=== PATIENT | male | born 1940 | race Caucasian/White ===

== ENCOUNTER 2018-10-09 16:32 | Inpatient (IN) | payer MEDICARE, MEDICAID ==
--- NOTE | 2018-10-09 16:53 | ED Physician Chart ---
ED Chief Complaint/HPI - Patient Information Date Seen:: 10/09/18 Time Seen:: 16:40 Chief Complaint:: AMS History of Present Illness:: onset x 3 days of fever, cough, congestion, dyspnea, and ALOC/AMS; no report of trauma, H/As, S/T, neck pain, C/P, Abd. Pain, A./N/V/D/C, chills, or urinary s/s Allergies:: Allergies Allergy/AdvReac Type Severity Reaction Status Date / Time chocolate flavor Allergy Verified 10/09/18 16:45 Historian:: Patient, EMS Review:: Nurse's Note Reviewed, Old Chart Reviewed, EMS run form Reviewed ED Review of Systems - Review of Systems General/Constitutional: Fever, No chills, No weight loss, Weakness, No diaphoresis, No edema, No loss of appetite Skin: No skin lesions, No rash, No bruising Head: No headache, No light-headedness Eyes: No loss of vision, No pain, No diplopia ENT: No earache, No nasal drainage, No sore throat, No tinnitus Neck: No neck pain, No swelling, No thyromegaly, No stiffness, No mass noted Cardio Vascular: No chest pain, No palpitations, No PND, No orthopnea, No edema Pulmonary: SOB, Cough, No sputum, No wheezing GI: No nausea, No vomiting, No diarrhea, No pain, No melena, No hematochezia, No constipation, No hematemesis G/U: No dysuria, No frequency, No hematuria, No nacturia Musculoskeletal: No bone or joint pain, No back pain, No muscle pain Endocrine: No polyuria, No polydipsia Psychiatric: No prior psych history, No depression, No anxiety, No suicidal ideation, No homicidal ideation, No auditory hallucination, No visual hallucination Hematopoietic: No bruising, No lymphadenopathy Allergic/Immuno: No urticaria, No angioedema Neurological: No syncope, No focal symptoms, Weakness, No paresthesia, No headache, No seizure, No dizziness, Confusion, No vertigo ED Past Medical History - Past Medical History Obtainable: Yes Past Medical History: HTN, CAD, Asthma/COPD, Dyslipidemia Family History: HTN Social History: Non Smoker, No Alcohol, No Drug Use, Single, Care Facility Surgical History: None Psychiatricy History: None Medication: Reviewed Family Medical History - Family Member Mother History Unknown: Yes ED Physical Exam - Physical Examination General/Constitutional: Awake, Well-developed, well-nourished, Alert, No distress, GCS 15, Non-toxic appearing, Ambulatory Head: Atraumatic Eyes: Lids, conjuctiva normal, PERRL, EOMI Skin: Nl inspection, No rash, No skin lesions, No ecchymosis, Well hydrated, No lymphadenopathy ENMT: External ears, nose nl, TM canals nl, Nasal exam nl, Lips, teeth, gums nl , Oropharynx nl, Tonsils nl Neck: Nontender, Full ROM w/o pain, No JVD, No nuchal rigidity, No bruit, No mass, No stridor Respiratory: Nl effort/Exclusion Other Respiratory comments:: Lungs: + Rales and Rhonchi Cardio Vascular: RRR, No murmur, gallop, rubs, NL S1 S2, Carotid/Femoral/Distal pulses equal bilaterally GI: No tenderness/rebounding/guarding, No organomegaly, No hernia, Normal BS's, Nondistended, No mass/bruits, No McBurney tenderness Other GI comments:: no pulsatile masses : No CVA tenderness Extremities: No tenderness or effusion, Full ROM, normal strength in all extremities, No edema, Normal digits & nails Neuro/Psych: Alert/oriented, DTR's symmetric, Normal sensory exam, Normal motor strength, Judgement/insight normal, Mood normal, Normal gait, No focal deficits Other Neuro/Psych comments:: no focal signs Misc: Normal back, No paraspinal tenderness ED Labs/Radiology/EKG Results - Lab Results Comments:: Reviewed - Radiology Results Comments:: CXR: + RML Inflitrate; Left Pleural Effusion; COPD; CHF - EKG Interpretations EKG Time:: 17:14 Rate & Rhythm: 101; ST Comments:: non-specific st-t changes ED Septic Shock - . Is Septic Shock (SBP<90, OR Lactate>4 mmol\L) present?: No ED Reassessment (Disposition) - Reassessment Reassessment Condition:: Improved - Diagnosis Diagnosis:: Dx: AMS; ALOC; Respiratory Acidosis; Pneumonia; Sepsis; Leukocytosis; Dehydration; Tachycardia; CHF; Elevated BNP; Dyspnea; Cough; COPD; Hyperlipidemia - Aftercare/Follow up Instructions Aftercare/Follow-Up Instructions:: Counseled pt regarding lab results/diagnosis & need follow up, Counseled pt & family regarding lab results/diagnosis & need follow up - Patient Disposition Discharge/Transfer:: Acute Care w/in this hosp Accepting Physician:: Dr. Benavidez Time Called:: 1829 Time Responded:: 18:30 Admitted to:: ICU Spoke to:: Dr. Benavidez Admitting Medical Physician:: Dr. Benavdiez Condition at Disposition:: Stable, Improved
[2018-10-09 17:06] LABS: % EOSINOPHILS 7.5 % (0.0-5.0); % LYMPHOCYTES 11.9 % (20.0-50.0); % MONOCYTES 3.4 % (2.0-10.0); % NEUTROPHILS 77.2 % (40.0-80.0); EOSINOPHILE ABSOLUTE 0.9 Th/cmm (0.1-0.4); HEMATOCRIT 39.8 % (41.0-60); HEMOGLOBIN 12.5 gm/dL (12-16); LYMPHOCYTE ABSOLUTE 1.5 Th/cmm (1.5-3.0); MEAN CELL VOLUME 90.8 fl (80-99); MEAN CORPUSCULAR HEMOGLOBIN 28.5 pg (27.0-31.0); MEAN CORPUSCULAR HGB CONC 31.4 pg (28.0-36.0); MEAN PLATELET VOLUME 7.9 fl; MONOCYTE ABSOLUTE 0.4 Th/cmm (0.3-1.0); NEUTROPHILE ABSOLUTE 9.4 Th/cmm (1.8-8.0); PLATELET COUNT 329 Th/cmm (150-400); RED BLOOD COUNT 4.39 Mil/cmm (3.80-5.80); RED CELL DISTRIBUTION WIDTH 18.4 % (11.5-20.0); WHITE BLOOD COUNT 12.2 Th/cmm (4.8-10.8)
[2018-10-09 17:06] LABS: ALLEN TEST YES; pH 7.26 (7.35-7.45)
[2018-10-09 17:14] LABS: INR 0.92 (0.5-1.4); PROTHROMBIN TIME (TEST) 9.6 SECONDS (9.5-11.5)
[2018-10-09] MEDS ORDERED: Levofloxacin 500mg/100mL 500 MG/100 ML BAG IV ONE ×2 (17:15→18:10)
[2018-10-09 17:22] LABS: ALBUMIN 3.6 gm/dL (4.2-5.5); ALKALINE PHOSPHATASE 50 U/L (34-104); ANION GAP 10.1 (7.0-16.0); BILIRUBIN,TOTAL 0.2 mg/dL (0.3-1.0); BUN - UREA NITROGEN 14 mg/dL (7-25); CALCIUM SERUM 9.7 mg/dL (8.6-10.3); CARBON DIOXIDE 38.1 mEq/L (21.0-31.0); CHLORIDE 96 mEq/L (98-107); CHOLESTEROL 211 mg/dL (<200); CREATININE - SERUM 1.1 mg/dL (0.7-1.3); CREATININE KINASE 62 U/L (30-223); GLUCOSE 131 mg/dL (70-105); HDL -HIGH DENSITY LIPOPROTEIN 56 mg/dL (23-92); POTASSIUM SERUM 4.2 mEq/L (3.5-5.1); SGOT 13 U/L (13-39); SGPT/ALT 19 U/L (7-52); SODIUM SERUM 140 mEq/L (136-145); TOTAL PROTEIN,SERUM 7.1 gm/dL (6.0-8.3); TRIGLYCERIDES 111 mg/dL (<150)
[2018-10-09 17:58] LABS: DDIMER QUANT 1100 ng/mL (100-400)
[2018-10-09] MEDS ORDERED: Albuterol/Ipratropium Neb 3 ML AERS HHN PRN (19:45)
[2018-10-09] MEDS ORDERED: Fleet Enema 135 mL RC PRN (19:45)
[2018-10-09] MEDS ORDERED: Magnesium Hydroxide (MOM) 30 mL UDC PO PRN (19:45)
[2018-10-09] MEDS ORDERED: Hydrocodone/APAP 5mg/325mg Tab PO PRN (19:45)
[2018-10-09 19:52] LABS: INR 0.92 (0.5-1.4); PROTHROMBIN TIME (TEST) 9.6 SECONDS (9.5-11.5)
[2018-10-09 20:03] LABS: pH 7.37 (7.35-7.45)
[2018-10-09 20:04] LABS: ALLEN TEST Positive
[2018-10-09 21:00] VITALS: BP 117/67
[2018-10-09] MEDS: methylPREDNISolone SS 40 mg Vial IVP SCH (21:12)
[2018-10-09] MEDS: D5-0.45NS 1,000 ML IV SCH (21:13)
[2018-10-10] MEDS: methylPREDNISolone SS 40 mg Vial IVP SCH ×3 (05:35→20:29)
[2018-10-10] MEDS: Albuterol Nebulizer 2.5mg/3mL HHN SCH ×4 (07:12→19:39)
[2018-10-10] MEDS: Ipratropium Neb 0.5 mg/2.5 mL UD HHN SCH ×4 (07:12→19:39)
[2018-10-10] MEDS: D5-0.45NS 1,000 ML IV SCH (08:56)
[2018-10-10] MEDS: POLYETHYLENE GLYCOL 3350 17 GM PACK PO SCH (09:05)
[2018-10-10] MEDS: Multivitamin w/ Minerals Tab PO SCH (09:05)
[2018-10-10] MEDS: Lactulose 10 Gm/15 mL 30mL UDC PO SCH (09:06)
[2018-10-10] MEDS: Aspirin 81mg Chewable Tab PO SCH (09:06)
[2018-10-10] MEDS: Diltiazem CD 120 mg 24H PO SCH (09:06)
--- NOTE | 2018-10-10 09:07 | Diagnostic Imaging Report ---
Portable chest x-ray HISTORY: Pain Patient is rotated. Heart size difficult to assess with portable technique in a poor inspiration. Densities noted in the left lower hemithorax with partial obscuration of the left hemidiaphragm. Question small left pleural effusion. Underlying infiltrate cannot be excluded. Accentuation of interstitial markings in the right perihilar area. Atherosclerotic calcination seen through the aorta. IMPRESSION: 1. Density left lower hemithorax. Findings may be associated with a small pleural effusion. Infiltrate cannot be excluded within the left lower lobe. 2. Atherosclerotic vascular changes
--- NOTE | 2018-10-10 10:04 | History & Physical ---
ADMIT DATE: 10/09/2018 CHIEF COMPLAINT: Increasing shortness of breath. HISTORY OF PRESENT ILLNESS: This is a 78-year-old male with history of CAD, hypertension, BPH, instability, and depression, admitted from a [facility] secondary to increasing shortness of breath with fever, cough, and congestion. The patient was evaluated in the ER and noted to have COPD exacerbation and pneumonia and admitted for further management. PAST MEDICAL HISTORY: As mentioned in the history of present illness. PAST SURGICAL HISTORY: Status post right ankle surgery. ALLERGIES: No known drug allergies. MEDICATIONS: The patient is on aspirin, vitamin C, albuterol, Atrovent, Colace, Remeron, MiraLax, prednisone, and Flomax. FAMILY HISTORY: Noncontributory. SOCIAL HISTORY: The patient is an avid smoker and drinker in the past. No intravenous drug use. The patient did some labor work. Single, no children. He also was a [employer] consultant. The patient lives in a [facility], requiring 24-hour total care. REVIEW OF SYSTEMS: GENERAL: He complains of not feeling well. HEENT: No blurred vision. NECK: No neck pain. LUNGS: No diagnosis of asthma. The patient with COPD. HEART: History of hypertension and coronary artery disease. ABDOMEN: No nausea, vomiting or pain. GENITOURINARY: The patient denies increased urinary frequency or dysuria. NEUROLOGIC: No headache, seizure or syncope. PSYCHIATRIC: Stable. PHYSICAL EXAMINATION: VITAL SIGNS: Blood pressure 125/66, respirations 20, pulse 79, temperature 97.4. GENERAL: Elderly male, appears stated age. NECK: Supple. No mass. LUNGS: Equal breath sounds with few rhonchi. HEART: Regular rate and rhythm with a systolic ejection murmur. ABDOMEN: Soft, globular. EXTREMITIES: With no atrophy or deformity. NEUROLOGIC: Limited. LABORATORY DATA: As detailed in the laboratory sheet. Pertinent lab findings include white count, which is elevated at 12.3, hemoglobin 12.5, platelets 329. D-dimer was 1100. PCO2 of 77, pO2 of 116, and this was on 50% FiO2. Chloride 96, BUN 14, creatinine 1.1, glucose 131. ASSESSMENT AND PLAN: Acute chronic obstructive pulmonary disease exacerbation, pneumonia, coronary artery disease, hypertension, benign prostatic hyperplasia. The patient ____ CO2 retention. We will continue the patient on oxygen, bronchodilator treatment, IV antibiotics, and IV steroids. We will review the patient's chest x-ray and check the patient's KUB. We will also perform a venous ultrasound. Continue with current care with followup consult and recommendation. [facility]# [id number]
--- NOTE | 2018-10-10 10:28 | Diagnostic Imaging Report ---
KUB abdominal film (portable) HISTORY: Pain There is a nonspecific gas pattern of nondilated large and small bowel. No free intraperitoneal air. Severe arthritic changes noted about the hips particularly on the right side. Vascular calcification is noted. IMPRESSION: 1. Nonspecific bowel gas pattern with no acute radiographic abnormalities. 2. Atherosclerotic vascular changes
[2018-10-11] MEDS: D5-0.45NS 1,000 ML IV SCH ×2 (00:45→20:11)
[2018-10-11 05:21] LABS: HEMATOCRIT 34.1 % (41.0-60); LYMPHOCYTE ABSOLUTE 0.7 Th/cmm (1.5-3.0); MEAN CELL VOLUME 90.4 fl (80-99); MEAN CORPUSCULAR HEMOGLOBIN 29.2 pg (27.0-31.0); MEAN CORPUSCULAR HGB CONC 32.3 pg (28.0-36.0); MEAN PLATELET VOLUME 7.9 fl; MONOCYTE ABSOLUTE 0.2 Th/cmm (0.3-1.0); NEUTROPHILE ABSOLUTE 15.2 Th/cmm (1.8-8.0); PLATELET COUNT 314 Th/cmm (150-400); RED BLOOD COUNT 3.77 Mil/cmm (3.80-5.80); RED CELL DISTRIBUTION WIDTH 18.1 % (11.5-20.0)
[2018-10-11 05:24] LABS: ANION GAP 10.7 (7.0-16.0); BUN - UREA NITROGEN 17 mg/dL (7-25); CALCIUM SERUM 9.2 mg/dL (8.6-10.3); CARBON DIOXIDE 35.9 mEq/L (21.0-31.0); CHLORIDE 99 mEq/L (98-107); CREATININE - SERUM 0.6 mg/dL (0.7-1.3); GLUCOSE 175 mg/dL (70-105); POTASSIUM SERUM 4.6 mEq/L (3.5-5.1); SODIUM SERUM 141 mEq/L (136-145)
[2018-10-11 05:32] LABS: WHITE BLOOD COUNT 16.1 Th/cmm (4.8-10.8)
[2018-10-11 05:52] LABS: BAND NEUTROPHILE 0 % (0-10); LYMPHOCYTE 5 % (20-50); NEUTROPHILS 90 % (40-80)
[2018-10-11 05:53] LABS: BASOPHIL 0 % (0-3); EOSINOPHIL 1 % (0-5); MONOCYTE 4 % (2-10)
[2018-10-11] MEDS: methylPREDNISolone SS 40 mg Vial IVP SCH ×3 (06:05→20:11)
[2018-10-11] MEDS: Albuterol Nebulizer 2.5mg/3mL HHN SCH ×4 (06:14→18:49)
[2018-10-11] MEDS: Ipratropium Neb 0.5 mg/2.5 mL UD HHN SCH ×4 (06:14→18:49)
[2018-10-11 08:09] LABS: pH 7.45 (7.35-7.45)
[2018-10-11 08:10] LABS: ALLEN TEST Positive
[2018-10-11] MEDS: Aspirin 81mg Chewable Tab PO SCH (08:58)
[2018-10-11] MEDS: Lactulose 10 Gm/15 mL 30mL UDC PO SCH (08:58)
[2018-10-11] MEDS: Diltiazem CD 120 mg 24H PO SCH (08:58)
[2018-10-11] MEDS: Multivitamin w/ Minerals Tab PO SCH (08:58)
[2018-10-11] MEDS: POLYETHYLENE GLYCOL 3350 17 GM PACK PO SCH (08:58)
--- NOTE | 2018-10-11 09:02 | Consultation ---
DATE OF CONSULTATION: 10/10/2018 PATIENT OF: Dr. Benavidez Thank you very much Dr. Benavidez for this consultation. HISTORY OF PRESENT ILLNESS: This is a 78-year-old male who was admitted with respiratory distress, shortness of breath, was placed on the BiPAP. The patient has an underlying history of COPD, was found to have pneumonia as well, has been off the BiPAP for a few hours now, doing well and was eating comfortable, no distress. PAST MEDICAL HISTORY: As above. SOCIAL HISTORY: Smoking about 40 years, quit 20 years ago. REVIEW OF SYSTEMS: GENERAL: Some weakness and fatigue. CARDIOVASCULAR: No chest pain, no palpitation. RESPIRATORY: Shortness of breath and cough. GASTROINTESTINAL: No nausea or vomiting. PHYSICAL EXAMINATION: GENERAL: Awake, alert, not in acute distress. VITAL SIGNS: Temperature 97.5, pulse 80, respiration 18, blood pressure 110/60, saturation 95%. HEENT: Atraumatic, normocephalic. Pupils react to light and accommodation. Ears, nose and throat normal. NECK: Supple. No JVD. CHEST: There are scattered rhonchi, minimal wheezing, decreased breath sounds. HEART: Regular rate and rhythm. ABDOMEN: Soft. EXTREMITIES: No edema. LABORATORY AND DIAGNOSTIC DATA: WBC is 12.2, hemoglobin 12.5, 39.8, platelets is 329. ABGs: PH 7.37, pCO2 of 77, pO2 116, bicarb is 37. Sodium is 140, potassium 4.2, BUN 14, creatinine 1.1. Chest x-ray: Infiltrate in left lower lobe and atelectasis in the right middle and lower lobe. IMPRESSION: A 78-year-old male with: 1. Chronic obstructive pulmonary disease exacerbation. 2. Acute respiratory failure. 3. Pneumonia. PLAN: 1. Continue IV antibiotics. 2. Nebulizer treatment. 3. BiPAP p.r.n. Follow up ABGs. 4. Solu-Medrol. I will follow the patient with you. Thank you very much for this consultation. [facility]# [id number]
--- NOTE | 2018-10-11 09:49 | Diagnostic Imaging Report ---
Bilateral lower extremity Doppler venous ultrasound exam HISTORY: Pain/swelling Sonographic sector images were obtained through the deep venous systems of both legs. Associated Doppler data was obtained. The exam demonstrates patency of the common femoral, superficial femoral, popliteal, and posterior tibial veins bilaterally. Specifically, no thrombus is seen. There are normal compressibility and augmentation responses. IMPRESSION: Negative exam for deep vein thrombophlebitis.
--- NOTE | 2018-10-11 09:56 | Diagnostic Imaging Report ---
Portable chest x-ray HISTORY: Shortness of breath Compared with the prior exam of 10/09/2018, there is improved visualization of the left lower lobe. Accentuation of the lower interstitial lung markings. No change in accentuation of interstitial markings within the right infrahilar area. The appearance suggests a chronic etiology. The heart appears enlarged. Atherosclerotic calcification noted. IMPRESSION: 1. Improved visualization of the left lower lobe. Parenchymal changes may be associated with a chronic etiology. Clinical correlation needed. 2. Cardiomegaly with atherosclerotic vascular changes
--- NOTE | 2018-10-11 14:27 | Internal Medicine Prog Note ---
Internal Medicine Subjective - Subjective Patient seen and examined:: with staff, chart reviewed Patient is:: awake, verbal, interactive Per staff patient has:: no adverse event, no episodes of fall, eating well, tolerating meds Internal Medicine Objective - Results Result Diagrams: 10/11/18 04:19 10/11/18 04:19 Recent Labs: Laboratory Last Values WBC 16.1 Th/cmm (4.8-10.8) H 10/11/18 04:19 RBC 3.77 Mil/cmm (3.80-5.80) L 10/11/18 04:19 Hgb 11.0 gm/dL (12-16) L 10/11/18 04:19 Hct 34.1 % (41.0-60) L 10/11/18 04:19 MCV 90.4 fl (80-99) 10/11/18 04:19 MCH 29.2 pg (27.0-31.0) 10/11/18 04:19 MCHC Differential 32.3 pg (28.0-36.0) 10/11/18 04:19 RDW 18.1 % (11.5-20.0) 10/11/18 04:19 Plt Count 314 Th/cmm (150-400) 10/11/18 04:19 MPV 7.9 fl 10/11/18 04:19 Add Manual Diff YES 10/11/18 04:19 Neutrophils % 77.2 % (40.0-80.0) 10/09/18 16:50 Band Neutrophils % 0 % (0-10) 10/11/18 04:19 Lymphocytes % 11.9 % (20.0-50.0) L 10/09/18 16:50 Monocytes % 3.4 % (2.0-10.0) 10/09/18 16:50 Eosinophils % 7.5 % (0.0-5.0) H 10/09/18 16:50 Basophils % 0.0 % (0.0-2.0) 10/09/18 16:50 Neutrophils (Manual) 90 % (40-80) H 10/11/18 04:19 Lymphocytes 5 % (20-50) L 10/11/18 04:19 Monocytes 4 % (2-10) 10/11/18 04:19 Eosinophils 1 % (0-5) 10/11/18 04:19 Basophils 0 % (0-3) 10/11/18 04:19 PT 9.6 SECONDS (9.5-11.5) 10/09/18 16:50 INR 0.92 (0.5-1.4) 10/09/18 16:50 PTT (Actin FS) 19.2 SECONDS (26.0-38.0) L 10/09/18 16:50 D-Dimer 1100 ng/mL (100-400) H 10/09/18 16:50 Specimen Source Arterial 10/11/18 07:45 Sample Site RB 10/11/18 07:45 pH 7.45 (7.35-7.45) 10/11/18 07:45 pCO2 56.0 mmHg (35.0-45.0) H* 10/11/18 07:45 pO2 53.0 mmHg (80.0-100.0) L 10/11/18 07:45 HCO3 34.6 mEq/L (20.0-26.0) H 10/11/18 07:45 Base Excess 12.7 mEq/L (-3.0-3.0) H 10/11/18 07:45 O2 Saturation 89.0 % (92.0-100.0) L 10/11/18 07:45 Branden Test Positive 10/11/18 07:45 Vent Rate N/A 10/11/18 07:45 Inspired O2 32 10/11/18 07:45 Tidal Volume N/A 10/11/18 07:45 PEEP N/A 10/11/18 07:45 Pressure (ins/psv/peep) N/A 10/11/18 07:45 Critical Value DM 10/11/18 07:45 Sodium 141 mEq/L (136-145) 10/11/18 04:19 Potassium 4.6 mEq/L (3.5-5.1) 10/11/18 04:19 Chloride 99 mEq/L (98-107) 10/11/18 04:19 Carbon Dioxide 35.9 mEq/L (21.0-31.0) H 10/11/18 04:19 Anion Gap 10.7 (7.0-16.0) 10/11/18 04:19 BUN 17 mg/dL (7-25) 10/11/18 04:19 Creatinine 0.6 mg/dL (0.7-1.3) L 10/11/18 04:19 Est GFR ( Amer) TNP 10/11/18 04:19 Est GFR (Non-Af Amer) TNP 10/11/18 04:19 BUN/Creatinine Ratio 28.3 10/11/18 04:19 Glucose 175 mg/dL (70-105) H 10/11/18 04:19 Whole Bld Lactic Acid 0.68 mmol/L (0.60-1.99) 10/09/18 16:43 Calcium 9.2 mg/dL (8.6-10.3) 10/11/18 04:19 Total Bilirubin 0.2 mg/dL (0.3-1.0) L 10/09/18 16:50 AST 13 U/L (13-39) 10/09/18 16:50 ALT 19 U/L (7-52) 10/09/18 16:50 Alkaline Phosphatase 50 U/L (34-104) 10/09/18 16:50 Ammonia 29 umol/L (16-53) 10/11/18 04:19 Creatine Kinase 62 U/L (30-223) 10/09/18 16:50 Troponin I 0.04 ng/mL (0.01-0.05) 10/09/18 16:50 B-Natriuretic Peptide 226.0 pg/mL (5.0-100.0) H 10/09/18 16:50 Total Protein 7.1 gm/dL (6.0-8.3) 10/09/18 16:50 Albumin 3.6 gm/dL (4.2-5.5) L 10/09/18 16:50 Globulin 3.5 gm/dL 10/09/18 16:50 Albumin/Globulin Ratio 1.0 (1.0-1.8) 10/09/18 16:50 Triglycerides 111 mg/dL (<150) 10/09/18 16:50 Cholesterol 211 mg/dL (<200) H 10/09/18 16:50 LDL Cholesterol Direct 140 mg/dL (75-193) 10/09/18 16:50 HDL Cholesterol 56 mg/dL (23-92) 10/09/18 16:50 TSH 0.65 uIU/ml (0.34-5.60) 10/11/18 04:19 - Physical Exam Vitals and I&O: Vital Signs Temp 97.4 F 10/11/18 12:08 Pulse 77 10/11/18 12:08 Resp 21 10/11/18 13:00 BP 120/68 10/11/18 12:08 Pulse Ox 94 10/11/18 12:08 Intake & Output 10/10/18 10/11/18 10/11/18 18:59 06:59 18:59 Intake Total 536.737 0197 50 Balance 656.214 0351 50 Weight (lbs) 74.843 kg 82.418 kg Intake: Intake, IV Amount 892.937 6961 50 Cefepime 1 gm In Dextrose 50 50 50 5% 50 ml @ 100 mls/hr IV Q12H [facility] Rx#:[id number] D5-0.45NS 1,000 ml @ 80 596.357 2935 mls/hr IV .[id number] [facility] Rx #:[id number] Oral 50 Other: # Voids 2 3 # Bowel Movements 0 0 Weight Source Bedscale Bedscale Active Medications: Current Medications Acetaminophen (Tylenol) 650 mg PO Q4H PRN PRN Reason: Pain (Mild) Acetaminophen/Hydrocodone Bitart ([place] 5mg/325mg) 1 tab PO Q6H PRN PRN Reason: Pain (Moderate) Stop: 12/08/18 19:44 Albuterol Sulfate (Albuterol 2.5mg/3ml Neb Ud) 2.5 mg HHN QIDRT [facility] Stop: 12/09/18 06:59 Last Admin: 10/11/18 11:12 Dose: 2.5 mg Albuterol/Ipratropium (Duoneb Neb) 3 ml HHN Q4HRT PRN PRN Reason: COPD Stop: 12/08/18 19:44 Ascorbic Acid (Vitamin C) 500 mg PO DAILY [facility] Stop: 12/09/18 08:59 Last Admin: 10/11/18 08:58 Dose: 500 mg Aspirin (Aspirin Chewable) 81 mg PO DAILY [facility] Stop: 12/09/18 08:59 Last Admin: 10/11/18 08:58 Dose: 81 mg Bisacodyl (Dulcolax 10 Mg Supp) 10 mg RC DAILY PRN PRN Reason: IF NO BM AFTER MOM Stop: 12/08/18 19:44 Diltiazem HCl (Cardizem Cd) 120 mg PO DAILY [facility] Stop: 12/09/18 08:59 Last Admin: 10/11/18 08:58 Dose: Not Given Docusate Sodium (Colace) 100 mg PO BID [facility] Stop: 12/09/18 08:59 Last Admin: 10/11/18 08:58 Dose: 100 mg Cefepime HCl 1 gm/ Dextrose 50 mls @ 100 mls/hr IV Q12H [facility] Stop: 12/08/18 19:59 Last Infusion: 10/11/18 09:10 Dose: Infused Dextrose/Sodium Chloride (D5-0.45ns) 1,000 mls @ 80 mls/hr IV .[id number] [facility] Stop: 12/08/18 19:59 Last Admin: 10/11/18 00:45 Dose: 80 mls/hr Ipratropium [place] (Atrovent Neb 0.5mg/2.5ml) 0.5 mg HHN QIDRT [facility] Stop: 12/09/18 06:59 Last Admin: 10/11/18 11:12 Dose: 0.5 mg Lactulose (Cephulac) 20 gm PO DAILY [facility] Stop: 12/09/18 08:59 Last Admin: 10/11/18 08:58 Dose: 20 gm Magnesium Hydroxide (Milk Of Magnesia) 30 ml PO Q24H PRN PRN Reason: Constipation Stop: 12/08/18 19:44 Methylprednisolone Sodium Succinate (Solu-Medrol) 60 mg IVP Q8HR [facility] Stop: 12/10/18 20:59 Mirtazapine (Remeron) 15 mg PO HS [facility] Stop: 12/09/18 20:59 Last Admin: 10/10/18 20:29 Dose: 15 mg Mupirocin (Bactroban Oint) 1 appl NS BID [facility] Stop: 10/16/18 09:01 Nitroglycerin (Nitrostat) 0.4 mg SL Q5MIN PRN PRN Reason: CHEST PAIN X3 Stop: 12/08/18 19:44 Ondansetron HCl (Zofran) 4 mg IV Q8H PRN PRN Reason: Nausea / Vomiting Stop: 12/08/18 19:48 Polyethylene Glycol (Miralax) 17 gm PO DAILY [facility] Stop: 12/09/18 08:59 Last Admin: 10/11/18 08:58 Dose: 17 gm Sodium Phosphate (Fleet Enema) 133 ml RC PRN PRN PRN Reason: IF NO BM AFTER DULCOLAX Stop: 12/08/18 19:44 Tamsulosin HCl (Flomax) 0.4 mg PO DAILY [facility] Stop: 12/09/18 08:59 Last Admin: 10/11/18 08:58 Dose: 0.4 mg General: alert Neck: Supple, No JVD, No thyromegaly Lungs: congested, rales, ronchi Cardiovascular: RRR, Normal S1, Normal S2, with murmur Abdomen: soft, non-tender, positive bowel sound Extremities: excoriation Neurological: no change Internal Medicine Assmt/Plan - Assessment Assessment: ASSESSMENT AND PLAN: Acute chronic obstructive pulmonary disease exacerbation, pneumonia, coronary artery disease, hypertension, benign prostatic hyperplasia. The patient ___high_ CO2 retention. - Plan Plan: PLAN: We will continue the patient on oxygen, bronchodilator treatment, IV antibiotics, and IV steroids. We will review the patient's chest x-ray and check the patient's KUB. We will also perform a venous ultrasound. Continue with current care with followup consult and recommendation.
[2018-10-12] MEDS: methylPREDNISolone SS 40 mg Vial IVP SCH ×2 (05:35→20:44)
[2018-10-12] MEDS: D5-0.45NS 1,000 ML IV SCH (05:39)
[2018-10-12 05:59] LABS: EOSINOPHILE ABSOLUTE 0.1 Th/cmm (0.1-0.4); HEMATOCRIT 34.3 % (41.0-60); HEMOGLOBIN 11.1 gm/dL (12-16); LYMPHOCYTE ABSOLUTE 0.5 Th/cmm (1.5-3.0); MEAN CORPUSCULAR HEMOGLOBIN 29.2 pg (27.0-31.0); MEAN CORPUSCULAR HGB CONC 32.4 pg (28.0-36.0); MEAN PLATELET VOLUME 7.4 fl; MONOCYTE ABSOLUTE 0.3 Th/cmm (0.3-1.0); NEUTROPHILE ABSOLUTE 17.3 Th/cmm (1.8-8.0); PLATELET COUNT 327 Th/cmm (150-400); RED CELL DISTRIBUTION WIDTH 18.4 % (11.5-20.0)
[2018-10-12 06:04] LABS: WHITE BLOOD COUNT 18.2 Th/cmm (4.8-10.8)
[2018-10-12 06:12] LABS: % EOSINOPHILS 0.3 % (0.0-5.0); % LYMPHOCYTES 2.5 % (20.0-50.0); % MONOCYTES 1.8 % (2.0-10.0); % NEUTROPHILS 95.4 % (40.0-80.0)
[2018-10-12] MEDS: Albuterol Nebulizer 2.5mg/3mL HHN SCH ×3 (06:19→18:30)
[2018-10-12] MEDS: Ipratropium Neb 0.5 mg/2.5 mL UD HHN SCH ×4 (06:19→18:30)
[2018-10-12 06:32] LABS: ANION GAP 10.2 (7.0-16.0); BUN - UREA NITROGEN 22 mg/dL (7-25); CALCIUM SERUM 8.7 mg/dL (8.6-10.3); CARBON DIOXIDE 32.4 mEq/L (21.0-31.0); CHLORIDE 103 mEq/L (98-107); CREATININE - SERUM 0.6 mg/dL (0.7-1.3); GLUCOSE 156 mg/dL (70-105); POTASSIUM SERUM 4.6 mEq/L (3.5-5.1); SODIUM SERUM 141 mEq/L (136-145)
[2018-10-12] MEDS: Aspirin 81mg Chewable Tab PO SCH (08:37)
[2018-10-12] MEDS: Diltiazem CD 120 mg 24H PO SCH (08:37)
[2018-10-12] MEDS: Multivitamin w/ Minerals Tab PO SCH (08:37)
[2018-10-12] MEDS: Lactulose 10 Gm/15 mL 30mL UDC PO SCH (08:37)
[2018-10-12] MEDS: POLYETHYLENE GLYCOL 3350 17 GM PACK PO SCH (08:37)
--- NOTE | 2018-10-12 14:53 | Internal Medicine Prog Note ---
Internal Medicine Subjective - Subjective Patient seen and examined:: with staff, chart reviewed Patient is:: awake, verbal, interactive Per staff patient has:: no adverse event, no episodes of fall, eating well, tolerating meds Internal Medicine Objective - Results Result Diagrams: 10/12/18 05:40 10/12/18 05:40 Recent Labs: Laboratory Last Values WBC 18.2 Th/cmm (4.8-10.8) H 10/12/18 05:40 RBC 3.80 Mil/cmm (3.80-5.80) 10/12/18 05:40 Hgb 11.1 gm/dL (12-16) L 10/12/18 05:40 Hct 34.3 % (41.0-60) L 10/12/18 05:40 MCV 90.0 fl (80-99) 10/12/18 05:40 MCH 29.2 pg (27.0-31.0) 10/12/18 05:40 MCHC Differential 32.4 pg (28.0-36.0) 10/12/18 05:40 RDW 18.4 % (11.5-20.0) 10/12/18 05:40 Plt Count 327 Th/cmm (150-400) 10/12/18 05:40 MPV 7.4 fl 10/12/18 05:40 Add Manual Diff YES 10/12/18 05:40 Neutrophils % 95.4 % (40.0-80.0) H 10/12/18 05:40 Band Neutrophils % 0 % (0-10) 10/11/18 04:19 Lymphocytes % 2.5 % (20.0-50.0) L 10/12/18 05:40 Monocytes % 1.8 % (2.0-10.0) L 10/12/18 05:40 Eosinophils % 0.3 % (0.0-5.0) 10/12/18 05:40 Basophils % 0.0 % (0.0-2.0) 10/12/18 05:40 Neutrophils (Manual) Not Reportable 10/12/18 05:40 Lymphocytes 5 % (20-50) L 10/11/18 04:19 Monocytes 4 % (2-10) 10/11/18 04:19 Eosinophils 1 % (0-5) 10/11/18 04:19 Basophils 0 % (0-3) 10/11/18 04:19 PT 9.6 SECONDS (9.5-11.5) 10/09/18 16:50 INR 0.92 (0.5-1.4) 10/09/18 16:50 PTT (Actin FS) 19.2 SECONDS (26.0-38.0) L 10/09/18 16:50 D-Dimer 1100 ng/mL (100-400) H 10/09/18 16:50 Specimen Source Arterial 10/11/18 07:45 Sample Site RB 10/11/18 07:45 pH 7.45 (7.35-7.45) 10/11/18 07:45 pCO2 56.0 mmHg (35.0-45.0) H* 10/11/18 07:45 pO2 53.0 mmHg (80.0-100.0) L 10/11/18 07:45 HCO3 34.6 mEq/L (20.0-26.0) H 10/11/18 07:45 Base Excess 12.7 mEq/L (-3.0-3.0) H 10/11/18 07:45 O2 Saturation 89.0 % (92.0-100.0) L 10/11/18 07:45 Branden Test Positive 10/11/18 07:45 Vent Rate N/A 10/11/18 07:45 Inspired O2 32 10/11/18 07:45 Tidal Volume N/A 10/11/18 07:45 PEEP N/A 10/11/18 07:45 Pressure (ins/psv/peep) N/A 10/11/18 07:45 Critical Value DM 10/11/18 07:45 Sodium 141 mEq/L (136-145) 10/12/18 05:40 Potassium 4.6 mEq/L (3.5-5.1) 10/12/18 05:40 Chloride 103 mEq/L (98-107) 10/12/18 05:40 Carbon Dioxide 32.4 mEq/L (21.0-31.0) H 10/12/18 05:40 Anion Gap 10.2 (7.0-16.0) 10/12/18 05:40 BUN 22 mg/dL (7-25) 10/12/18 05:40 Creatinine 0.6 mg/dL (0.7-1.3) L 10/12/18 05:40 Est GFR ( Amer) TNP 10/12/18 05:40 Est GFR (Non-Af Amer) TNP 10/12/18 05:40 BUN/Creatinine Ratio 36.7 10/12/18 05:40 Glucose 156 mg/dL (70-105) H 10/12/18 05:40 Whole Bld Lactic Acid 0.68 mmol/L (0.60-1.99) 10/09/18 16:43 Calcium 8.7 mg/dL (8.6-10.3) 10/12/18 05:40 Total Bilirubin 0.2 mg/dL (0.3-1.0) L 10/09/18 16:50 AST 13 U/L (13-39) 10/09/18 16:50 ALT 19 U/L (7-52) 10/09/18 16:50 Alkaline Phosphatase 50 U/L (34-104) 10/09/18 16:50 Ammonia 29 umol/L (16-53) 10/11/18 04:19 Creatine Kinase 62 U/L (30-223) 10/09/18 16:50 Troponin I 0.04 ng/mL (0.01-0.05) 10/09/18 16:50 B-Natriuretic Peptide 226.0 pg/mL (5.0-100.0) H 10/09/18 16:50 Total Protein 7.1 gm/dL (6.0-8.3) 10/09/18 16:50 Albumin 3.6 gm/dL (4.2-5.5) L 10/09/18 16:50 Globulin 3.5 gm/dL 10/09/18 16:50 Albumin/Globulin Ratio 1.0 (1.0-1.8) 10/09/18 16:50 Triglycerides 111 mg/dL (<150) 10/09/18 16:50 Cholesterol 211 mg/dL (<200) H 10/09/18 16:50 LDL Cholesterol Direct 140 mg/dL (75-193) 10/09/18 16:50 HDL Cholesterol 56 mg/dL (23-92) 10/09/18 16:50 TSH 0.65 uIU/ml (0.34-5.60) 10/11/18 04:19 - Physical Exam Vitals and I&O: Vital Signs Temp 96.8 F 10/12/18 11:29 Pulse 80 10/12/18 11:29 Resp 17 10/12/18 11:29 BP 118/67 10/12/18 11:29 Pulse Ox 94 10/12/18 11:29 Intake & Output 10/11/18 10/12/18 10/12/18 18:59 06:59 18:59 Intake Total 2200 807.333 Balance 2200 807.333 Weight (lbs) 82.355 kg Intake: Intake, IV Amount 1050 807.333 Cefepime 1 gm In Dextrose 50 50 5% 50 ml @ 100 mls/hr IV Q12H [facility] Rx#:[id number] D5-0.45NS 1,000 ml @ 80 1000 757.333 mls/hr IV .[id number] [facility] Rx #:[id number] Oral 1150 Other: # Voids 2 # Bowel Movements 0 Weight Source Bedscale Active Medications: Current Medications Acetaminophen (Tylenol) 650 mg PO Q4H PRN PRN Reason: Pain (Mild) Acetaminophen/Hydrocodone Bitart ([place] 5mg/325mg) 1 tab PO Q6H PRN PRN Reason: Pain (Moderate) Stop: 12/08/18 19:44 Albuterol Sulfate (Albuterol 2.5mg/3ml Neb Ud) 2.5 mg HHN QIDRT [facility] Stop: 12/09/18 06:59 Last Admin: 10/12/18 06:19 Dose: 2.5 mg Albuterol/Ipratropium (Duoneb Neb) 3 ml HHN Q4HRT PRN PRN Reason: COPD Stop: 12/08/18 19:44 Last Admin: 10/12/18 10:30 Dose: 3 ml Ascorbic Acid (Vitamin C) 500 mg PO DAILY [facility] Stop: 12/09/18 08:59 Last Admin: 10/12/18 08:37 Dose: 500 mg Aspirin (Aspirin Chewable) 81 mg PO DAILY [facility] Stop: 12/09/18 08:59 Last Admin: 10/12/18 08:37 Dose: 81 mg Bisacodyl (Dulcolax 10 Mg Supp) 10 mg RC DAILY PRN PRN Reason: IF NO BM AFTER MOM Stop: 12/08/18 19:44 Diltiazem HCl (Cardizem Cd) 120 mg PO DAILY [facility] Stop: 12/09/18 08:59 Last Admin: 10/12/18 08:37 Dose: 120 mg Docusate Sodium (Colace) 100 mg PO BID [facility] Stop: 12/09/18 08:59 Last Admin: 10/12/18 08:36 Dose: 100 mg Cefepime HCl 1 gm/ Dextrose 50 mls @ 100 mls/hr IV Q12H [facility] Stop: 12/08/18 19:59 Last Admin: 10/12/18 08:35 Dose: 100 mls/hr Dextrose/Sodium Chloride (D5-0.45ns) 1,000 mls @ 80 mls/hr IV .[id number] [facility] Stop: 12/08/18 19:59 Last Admin: 10/12/18 05:39 Dose: 80 mls/hr Ipratropium [place] (Atrovent Neb 0.5mg/2.5ml) 0.5 mg HHN QIDRT [facility] Stop: 12/09/18 06:59 Last Admin: 10/12/18 10:30 Dose: 0.5 mg Lactulose (Cephulac) 20 gm PO DAILY [facility] Stop: 12/09/18 08:59 Last Admin: 10/12/18 08:37 Dose: 20 gm Magnesium Hydroxide (Milk Of Magnesia) 30 ml PO Q24H PRN PRN Reason: Constipation Stop: 12/08/18 19:44 Methylprednisolone Sodium Succinate (Solu-Medrol) 60 mg IVP Q8HR [facility] Stop: 12/10/18 20:59 Last Admin: 10/12/18 05:35 Dose: 60 mg Mirtazapine (Remeron) 15 mg PO HS [facility] Stop: 12/09/18 20:59 Last Admin: 10/11/18 20:11 Dose: 15 mg Mupirocin (Bactroban Oint) 1 appl NS BID [facility] Stop: 10/16/18 09:01 Last Admin: 10/12/18 08:39 Dose: 1 appl Nitroglycerin (Nitrostat) 0.4 mg SL Q5MIN PRN PRN Reason: CHEST PAIN X3 Stop: 12/08/18 19:44 Ondansetron HCl (Zofran) 4 mg IV Q8H PRN PRN Reason: Nausea / Vomiting Stop: 12/08/18 19:48 Polyethylene Glycol (Miralax) 17 gm PO DAILY [facility] Stop: 12/09/18 08:59 Last Admin: 10/12/18 08:37 Dose: 17 gm Sodium Phosphate (Fleet Enema) 133 ml RC PRN PRN PRN Reason: IF NO BM AFTER DULCOLAX Stop: 12/08/18 19:44 Tamsulosin HCl (Flomax) 0.4 mg PO DAILY [facility] Stop: 12/09/18 08:59 Last Admin: 10/12/18 08:36 Dose: 0.4 mg General: alert Neck: Supple, No JVD, No thyromegaly Lungs: congested, rales, ronchi Cardiovascular: RRR, Normal S1, Normal S2, with murmur Abdomen: soft, non-tender, positive bowel sound Extremities: excoriation Neurological: no change Internal Medicine Assmt/Plan - Assessment Assessment: ASSESSMENT AND PLAN: Acute chronic obstructive pulmonary disease exacerbation, pneumonia, coronary artery disease, hypertension, benign prostatic hyperplasia. The patient ___high_ CO2 retention. - Plan Plan: PLAN: We will continue the patient on oxygen, bronchodilator treatment, IV antibiotics, and IV steroids. We will review the patient's chest x-ray and check the patient's KUB. We will also perform a venous ultrasound. Continue with current care with followup consult and recommendation.
--- NOTE | 2018-10-12 19:37 | History & Physical ---
ADMIT DATE: 10/09/2018 PULMONARY/CRITICAL CARE PROGRESS NOTE PROBLEM LIST: 1. Acute exacerbation of chronic obstructive pulmonary disease. 2. Possibly pneumonia. 3. Suspect sleep apnea syndrome. SYMPTOMS: Nil. He is feeling okay. No specific new symptoms. He says breathing is better, but is being transferred to long-term acute care. PHYSICAL EXAMINATION: VITAL SIGNS: The patient's recorded vitals, temperature is 99.2, respirations 18, saturation is 95% on 3 liters per minute. NECK: Veins not visualized. CHEST: Shows diminished air entry with occasional rhonchi. HEART: Regular. ABDOMEN: Soft and nontender. EXTREMITIES: Shows no peripheral edema. IMPRESSION: The patient is clinically little better, [id number] respiratory failure with tracheobronchitis with early pneumonitis, right base with obstructive sleep apnea syndrome. PLANS AND SUGGESTIONS: We will go ahead and continue aggressive respiratory care, inhalation treatment, etc. We will repeat the chest x-ray again tomorrow to see how it is and go from there. JOB# [id number]
[2018-10-13 03:06] LABS: FOLIC ACID 8.6 ng/mL (>3.0)
[2018-10-13] MEDS: methylPREDNISolone SS 40 mg Vial IVP SCH (05:00)
[2018-10-13 05:07] LABS: EOSINOPHILE ABSOLUTE 0.1 Th/cmm (0.1-0.4); HEMATOCRIT 33.6 % (41.0-60); HEMOGLOBIN 10.6 gm/dL (12-16); LYMPHOCYTE ABSOLUTE 0.4 Th/cmm (1.5-3.0); MEAN CELL VOLUME 90.4 fl (80-99); MEAN CORPUSCULAR HEMOGLOBIN 28.4 pg (27.0-31.0); MEAN CORPUSCULAR HGB CONC 31.4 pg (28.0-36.0); MEAN PLATELET VOLUME 7.4 fl; MONOCYTE ABSOLUTE 0.4 Th/cmm (0.3-1.0); NEUTROPHILE ABSOLUTE 13.7 Th/cmm (1.8-8.0); PLATELET COUNT 307 Th/cmm (150-400); RED BLOOD COUNT 3.71 Mil/cmm (3.80-5.80); RED CELL DISTRIBUTION WIDTH 18.4 % (11.5-20.0); WHITE BLOOD COUNT 14.6 Th/cmm (4.8-10.8)
[2018-10-13 05:18] LABS: ANION GAP 10.2 (7.0-16.0); BUN - UREA NITROGEN 25 mg/dL (7-25); CALCIUM SERUM 8.6 mg/dL (8.6-10.3); CARBON DIOXIDE 32.2 mEq/L (21.0-31.0); CHLORIDE 102 mEq/L (98-107); CREATININE - SERUM 0.6 mg/dL (0.7-1.3); GLUCOSE 125 mg/dL (70-105); POTASSIUM SERUM 4.4 mEq/L (3.5-5.1); SODIUM SERUM 140 mEq/L (136-145)
[2018-10-13 05:46] LABS: BAND NEUTROPHILE 1 % (0-10); LYMPHOCYTE 8 % (20-50); MONOCYTE 4 % (2-10); NEUTROPHILS 87 % (40-80)
[2018-10-13] MEDS: Albuterol Nebulizer 2.5mg/3mL HHN SCH (06:51)
[2018-10-13] MEDS: Ipratropium Neb 0.5 mg/2.5 mL UD HHN SCH (06:51)
[2018-10-13 07:06] LABS: FOLIC ACID 7.8 ng/mL (>3.0)
--- NOTE | 2018-10-13 15:14 | Discharge Summary ---
DATE OF DISCHARGE: 10/13/2018 CHIEF COMPLAINT: Increased shortness of breath. FINAL DIAGNOSES: Pneumonia, acute chronic obstructive pulmonary disease exacerbation, leukocytosis, coronary artery disease, hypertension, benign prostatic hyperplasia and gait instability. HISTORY: This is a 78-year-old male with history of CAD, hypertension, BPH, gait disability, depression, admitted from nursing facility secondary to increasing shortness of breath, fever, cough. The patient was evaluated in the ER and admitted for further management. PHYSICAL EXAMINATION: VITAL SIGNS: Blood pressure 131/57, respirations 20, pulse 80, temperature 98.6. GENERAL: Elderly male, appears stated age. NECK: Supple. No mass. LUNGS: Equal breath sounds, few rhonchi. HEART: Regular rate and rhythm with systolic ejection murmur. ABDOMEN: Soft, globular. EXTREMITIES: Positive excoriations. HOSPITAL COURSE: The patient was admitted to telemetry, continue oxygen and bronchodilator treatment, IV antibiotic, IV steroids. The patient's white count continue to increase 18.2, pCO2 remains elevated at 77. The patient was referred to Dr. Glass for Pulmonary. The patient now stable for discharge back to nursing facility. We will refer the patient to long-term acute care for continued IV antibiotic, IV steroids and bronchodilators. CONDITION ON DISCHARGE: Fair. DISCHARGE INSTRUCTIONS: ____ to be referred to long-term acute care for continued care and management. The patient's case was referred to Dr. Vasquez. [facility]# [id number]
== END 2018-10-13 08:00 | DRG 871 ==
LOC: ER 16:32 → TELE 19:00
PROVIDERS: ADMIT Internal Medicine; ATTEND Internal Medicine
PROC: 5A09357 Assistance with Respiratory Ventilation, Less than 24 Consecutive Hours, Continuous Positive Airway Pressure (ICD-10-PCS; principal; 2018-10-09)
PROC: 5A09357 Assistance with Respiratory Ventilation, Less than 24 Consecutive Hours, Continuous Positive Airway Pressure (ICD-10-PCS; 2018-10-10)
PROC: 5A09357 Assistance with Respiratory Ventilation, Less than 24 Consecutive Hours, Continuous Positive Airway Pressure (ICD-10-PCS; 2018-10-12)
DX: A41.9 Sepsis, unspecified organism (principal); J18.9 Pneumonia, unspecified organism; J96.20 Acute and chronic respiratory failure, unspecified whether with hypoxia or hypercapnia; J44.0 Chronic obstructive pulmonary disease with (acute) lower respiratory infection; J44.1 Chronic obstructive pulmonary disease with (acute) exacerbation; N40.0 Benign prostatic hyperplasia without lower urinary tract symptoms; I25.10 Atherosclerotic heart disease of native coronary artery without angina pectoris; E78.5 Hyperlipidemia, unspecified; E86.0 Dehydration; I50.9 Heart failure, unspecified; I11.0 Hypertensive heart disease with heart failure; G47.33 Obstructive sleep apnea (adult) (pediatric); F32.9 Major depressive disorder, single episode, unspecified; Z82.49 Family history of ischemic heart disease and other diseases of the circulatory system
CPT/HCPCS: 36415-UA; 36600-90; 71045-TC; 74000-TC; 80048-TC; 80053-TC; 80061-TC; 82140-TC; 82550-TC; 82607-90; 82746-90; 82803-TC; 83036-90; 83605; 83880-TC; 84443-TC; 84484-TC; 85007-TC; 85025-TC; 85379-TC; 85610-TC; 85730-TC; 90779; 93005; 93970-TC-50; 94660; 94760; J0692; J1956; J2920; J7613; Z7610